=== PATIENT | female | born 1985 | race Caucasian/White ===

== ENCOUNTER 2016-04-09 09:28 | Emergency (ER) | payer BC, SELFPAY ==
[2016-04-09] MEDS ORDERED: IBUPROFEN 600 MG TAB As Ordered ONE (10:27)
[2016-04-09] MEDS ORDERED: ADACEL/BOOSTRIX VACCINE (DIPHTH/PERTUSS/ACELL/TETANUS)0.5ML SYR (90715) As Ordered ONE (10:27)
[2016-04-09] MEDS ORDERED: LIDOCAINE W/EPINEPHRINE 1% 20ML VIAL As Ordered ONE (10:27)
--- NOTE | 2016-04-09 11:01 | REP ---
Clinical: Trauma/injury . Technique: AP, lateral, bilateral oblique views of the left elbow. Findings: No acute fracture or dislocation is appreciated. Joint spaces and surrounding soft tissues appear normal. Lateral view demonstrates normal positioning to the anterior and posterior fat pads without evidence for effusion/hemarthrosis. No subcutaneous emphysema or foreign body identified. Impression: Normal left elbow radiographs. No acute fracture or dislocation. Signed by Van Martin MD 04/09/2016 10:53 A
--- NOTE | 2016-04-09 11:45 | EDDOCDS ---
Nurse's Notes [facility] Name: Ramonita Thomas Age: 30 yrs Sex: Female : 1985 Arrival Date: 04/09/2016 Time: 09:28 Bed I7 / 29 Private MD: David Pink Diagnosis: Laceration without foreign body of left elbow Presentation: 04/09 09:33 Presenting complaint: Patient states: left elbow injury and lac after slipping on ice. srm did not hit head. Adult Sepsis Screening: The patient does not have new or worsening altered mentation. Patient's respiratory rate is less than 22. Systolic blood pressure is greater than 100. Patient has a qSOFA score of 0- Negative Sepsis Screen. Suicide/Homicide risk assessment- the patient denies having any suicidal and/or homicidal ideations and does not present with any other emotional, behavioral or mental health complaints. 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 Transition of care: patient was not received from another setting of care. 09:33 Acuity: THAIS Level 4 [facility] 09:33 Method Of Arrival: Walkin/Carried/Asstd [facility] Triage Assessment: 09:34 General: Appears in no apparent distress, Behavior is appropriate for age, cooperative. srm Pain: Pain currently is 4 out of 10 on a pain scale. 09:34 Musculoskeletal: Reports left elbow injury. [facility] 09:35 HIV screening NA for this visit Offered previously. 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 control daily - PMHx: none; - PSHx: left ankle repair X2; eye surgery as a toddler; - Social history: Smoking status: Patient states was never smoker of tobacco. No barriers to communication noted, The patient speaks fluent Jordanian, Speaks appropriately for age. - Family history: Not pertinent. - : The pt / caregiver states he / she is not on anticoagulants. Home medication list is obtained from the patient. - Exposure Risk Screening:: None identified. Screenin:41 Screening information is obtained from the patient. Fall risk: No risks identified. jmk Assistance ADL's: requires no assistance with activities of daily living. Abuse/DV Screen: The patient / caregiver reports he/she is: not in a situation that causes fear, pain or injury. Nutritional screening: No deficits noted. Advance Directives: Currently, there is no health care proxy. There is no active DNR order. There is no living will. There is no Power of Robotic Machine Operator. Advance directive information has not previously been placed in an [facility] medical record. home support is adequate. Assessment: 09:40 Derm: 1/2 inch lac to elbow. cleansed with wound cutch cleaner. not actively bleeding at this srm time. Musculoskeletal: Circulation, motion, and sensation intact Capillary refill < 3 seconds in left fingers pt has full ROM of elbow. 10:50 General: Appears pain with palpation to posterior aspect of left elbow. ROM painful but jmk adequate.. pulse intact.approx 1/2" skin tear noted without active bleeding. denies other injury.. 11:41 General: Appears suturing completed and tolerated well. bacitracin and Band-Aid applied.k Vital Signs: 09:30 BP 155 / 82; Pulse 79; Resp 18; Temp 97.1(O); Pulse Ox 100% on R/A; Weight 94.8 kg (R); ct3 Height 5 ft. 33 in. (236.22 cm) (R); Pain 8/10; 11:36 BP 112 / 59; Pulse 73; Resp 18; Temp 98.6(TE); Pulse Ox 98% on R/A; Pain 3/10; nb2 09:30 Body Mass Index 16.99 (94.80 kg, 236.22 cm) ct3 Vitals: 09:30 Log In Time: April 09, 2016 at 09:27. ct3 ED Course: 09:29 Patient visited by Lorraine Thomason PCA. ct3 09:29 David Pink is Private Physician. ct3 09:29 Patient moved to Waiting ct3 09:31 Patient moved to Pre RCE ct3 09:33 Triage Initiated srm 09:35 Patient moved to Triage 3 srm 09:41 Patient visited by Anna Lemus RN. srm 10:13 Dilcia Wayne PA-C is PHCP. dt4 10:13 Kristine Paulson MD is Attending Physician. dt4 10:13 Patient visited by Dilcia Wayne PA-C. dt4 10:32 Patient moved to I7 / srm 10:33 Patient moved to Radiology srm 10:43 Patient name changed from Ramonita\\S\\Ghassan\\S\\Brittny\\S\\ to Ramonita\\S\\Taylor\\S\\William. EDMS 10:52 Patient visited by Tom Odom RN. jmk 10:53 [facility] Payment Agreement was scanned into [employer] and attached to record. lg 10:56 Patient moved to jmk 11:24 Elbow, Complete Returned. EDMS 11:37 Patient visited by Gillian Santos. nb2 11:41 The patient / caregiver is instructed regarding the plan of care and ED course. jmk 11:41 No IV's were initiated during this patient's visit. No procedures done that require k assistance. Administered Medications: 10:31 Drug: Tetanus- Diptheria-Acellular Pertussis 0.5 ml [diphth,pertussis(acel),tetanus 2.5 srm Lf unit-8 mcg-5 Lf/0.5mL IM syringe (0.5 mL)] {Pilling Machine Operator: [employer]. Exp: 05/13/2018. Lot #: [id number]. } Route: IM; Site: left deltoid; 10:31 Drug: Ibuprofen 600 mg [ibuprofen 600 mg tablet (1 tabs)] Route: PO; [facility] Order Results: Radiology Order: Elbow, Complete Test: Elbow, Complete REASON FOR EXAMINATION: left elbow injury; Clinical: Trauma/injury .; ; Technique: AP, lateral, bilateral oblique views of the left elbow.; ; Findings:; No acute fracture or dislocation is appreciated. Joint spaces and surrounding; soft tissues appear normal. Lateral view demonstrates normal positioning to the; anterior and posterior fat pads without evidence for effusion/hemarthrosis. No; subcutaneous emphysema or foreign body identified.; ; Impression:; Normal left elbow radiographs. No acute fracture or dislocation.; ; ; Signed by; Van Martin MD 04/09/2016 10:53 A; Outcome: 11:32 Discharge ordered by Provider. dt4 11:41 Discharge Assessment: Patient awake, alert and oriented x 3. No cognitive and/or jmk functional deficits noted. Patient verbalized understanding of disposition instructions. patient administered narcotics - no. The following High Risk Discharge criteria are identified: None. Discharged to home ambulatory. Condition: good. Discharge instructions given to patient, Instructed on discharge instructions, follow up and referral plans. medication usage, Demonstrated understanding of instructions, medications, Pt was receptive of discharge instructions/ teaching. No special radiology studies were completed. Property :Personal belongings accompany Pt. 11:44 Patient left the ED. dustin Signatures: Dispatcher [employer] EDMS Tom Odom RN RN jmk Michelson, Staci, RN RN srm Ganter, LoriLee, Reg Reg lg Paddy, Lorraine, MEDICAL TECHNOLOGIST HEMATOLOGY MEDICAL TECHNOLOGIST HEMATOLOGY ct3 Dilcia Wayne PA-C PA-C dt4 Gillian Santos2 MTDD
--- NOTE | 2016-04-09 11:45 | EDDOCDS ---
Physician Documentation [facility] Name: Ramonita Thomas Age: 30 yrs Sex: Female : 1985 Arrival Date: 04/09/2016 Time: 09:28 Bed I7 / 29 Private MD: David Pink Disposition: 04/09/16 11:32 Discharged to Home/Self Care. Impression: Laceration without foreign body of left elbow. - Condition is Stable. - Discharge Instructions: Laceration Care, Adult. - Medication Reconciliation, Local Pharmacy Hours form. - Follow up: Emergency Department; When: 10-12 DAYS ; Reason: Wound/Symptom Recheck, Staple/Suture removal. - Problem is new. - Symptoms have improved. - Notes: PLEASE RETURN TO THE ER, URGENT CARE OR YOUR PRIMARY CARE PROVIDER'S OFFICE IN 10-12 DAYS TO HAVE THE SUTURES REMOVED. IF YOU NOTICE ANY REDNESS, SWELLING, INCREASED PAIN, DRAINGE OR DISCHARGE FROM THIS AREA, PLEASE RETURN TO THE ER AT THAT TIME, THESE ARE ALL SIGNS OF INFECTION. Historical: - Allergies: Vicodin ("felt crazy"); - Home Meds: 1. control daily - PMHx: none; - PSHx: left ankle repair X2; eye surgery as a toddler; - Social history: Smoking status: Patient states was never smoker of tobacco. No barriers to communication noted, The patient speaks fluent Belarusian, Speaks appropriately for age. - Family history: Not pertinent. - : The pt / caregiver states he / she is not on anticoagulants. Home medication list is obtained from the patient. - Exposure Risk Screening:: None identified. 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 33 in. (236.22 cm) (R); Pain 8/10; 11:36 BP 112 / 59; Pulse 73; Resp 18; Temp 98.6(TE); Pulse Ox 98% on R/A; Pain 3/10; nb2 09:30 Body Mass Index 16.99 (94.80 kg, 236.22 cm) ct3 MDM: 10:23 Elbow, Complete Ordered. EDMS 10:24 Tetanus- Diptheria-Acellular Pertussis 0.5 ml IM once; Routine booster 10-64yrs, >64 dt4 with child contact [place] [employer] ordered. 10:24 Lidocaine 10 mg/mL (1 %) 10 ml Infiltration once; WITH EPI PLEASE, THANK YOU. ordered. dt4 10:24 Ibuprofen 600 mg PO once ordered. dt4 10:34 Financial registration complete. lg 10:53 [facility] Payment Agreement was scanned into [employer] and attached to record. lg Administered Medications: 10:31 Drug: Tetanus- Diptheria-Acellular Pertussis 0.5 ml [diphth,pertussis(acel),tetanus 2.5 srm Lf unit-8 mcg-5 Lf/0.5mL IM syringe (0.5 mL)] {Groundskeeper Supervisor: [employer]. Exp: 05/13/2018. Lot #: [id number]. } Route: IM; Site: left deltoid; 10:31 Drug: Ibuprofen 600 mg [ibuprofen 600 mg tablet (1 tabs)] Route: PO; srm Signatures: Dispatcher [employer]Ho EDMS Tom Odom RN RN jmk Michelson, Staci, RN RN srm Lela Pires, Dilcia Yepez lg, PA-C PA-C dt4 The chart was reviewed and I authenticate all verbal orders and agree with the evaluation and treatment provided.Attachments: 10:53 [facility] Payment Agreement lg MTDD
--- NOTE | 2016-04-11 12:45 | EDDOCDS ---
Physician Documentation [facility] Name: Ramonita Thomas Age: 30 yrs Sex: Female : 1985 Arrival Date: 04/09/2016 Time: 09:28 Bed I7 / 29 Private MD: David Pink Disposition: 04/09/16 11:32 Discharged to Home/Self Care. Impression: Laceration without foreign body of left elbow. - Condition is Stable. - Discharge Instructions: Laceration Care, Adult. - Medication Reconciliation, Local Pharmacy Hours form. - Follow up: Emergency Department; When: 10-12 DAYS ; Reason: Wound/Symptom Recheck, Staple/Suture removal. - Problem is new. - Symptoms have improved. - Notes: PLEASE RETURN TO THE ER, URGENT CARE OR YOUR PRIMARY CARE PROVIDER'S OFFICE IN 10-12 DAYS TO HAVE THE SUTURES REMOVED. IF YOU NOTICE ANY REDNESS, SWELLING, INCREASED PAIN, DRAINGE OR DISCHARGE FROM THIS AREA, PLEASE RETURN TO THE ER AT THAT TIME, THESE ARE ALL SIGNS OF INFECTION. Historical: - Allergies: Vicodin ("felt crazy"); - Home Meds: 1. control daily - PMHx: none; - PSHx: left ankle repair X2; eye surgery as a toddler; - Social history: Smoking status: Patient states was never smoker of tobacco. No barriers to communication noted, The patient speaks fluent Chinese, Speaks appropriately for age. - Family history: Not pertinent. - : The pt / caregiver states he / she is not on anticoagulants. Home medication list is obtained from the patient. - Exposure Risk Screening:: None identified. ACCESS CLINICIAN: 04/09 09:34 LMP 04/09/2016 srm Vital Signs: 09:30 BP 155 / 82; Pulse 79; Resp 18; Temp 97.1(O); Pulse Ox 100% on R/A; Weight 94.8 kg / ct3 209 lbs (R); Height 5 ft. 33 in. (236.22 cm) (R); Pain 8/10; 11:36 BP 112 / 59; Pulse 73; Resp 18; Temp 98.6(TE); Pulse Ox 98% on R/A; Pain 3/10; nb2 09:30 Body Mass Index 16.99 (94.80 kg, 236.22 cm) ct3 MDM: 10:23 Elbow, Complete Ordered. EDMS 10:24 Tetanus- Diptheria-Acellular Pertussis 0.5 ml IM once; Routine booster 10-64yrs, >64 dt4 with child contact [place] [employer] ordered. 10:24 Lidocaine 10 mg/mL (1 %) 10 ml Infiltration once; WITH EPI PLEASE, THANK YOU. ordered. dt4 10:24 Ibuprofen 600 mg PO once ordered. dt4 10:34 Financial registration complete. lg 10:53 [facility] Payment Agreement was scanned into [employer] and attached to record. lg 14:13 T-Sheet-- Draft Copy was scanned into [employer] and attached to record. gb Administered Medications: 10:31 Drug: Tetanus- Diptheria-Acellular Pertussis 0.5 ml [diphth,pertussis(acel),tetanus 2.5 srm Lf unit-8 mcg-5 Lf/0.5mL IM syringe (0.5 mL)] {Soaker Hides: [employer]. Exp: 05/13/2018. Lot #: [id number]. } Route: IM; Site: left deltoid; 10:31 Drug: Ibuprofen 600 mg [ibuprofen 600 mg tablet (1 tabs)] Route: PO; srm Signatures: Dispatcher MedHost EDMS Tom Odom,RN Anna Cheung RN RN srm Judith Underwood, Reg Reg gb Lela Pires, Reg Reg lg Dilcia Wayne, NED PAChris dt4 The chart was reviewed and I authenticate all verbal orders and agree with the evaluation and treatment provided.Attachments: 10:53 [facility] Payment Agreement lg 14:13 T-Sheet-- Draft Copy gb Chart Complete MTDD
--- NOTE | 2016-04-11 12:45 | EDDOCDS ---
Physician Documentation [facility] Name: Ramonita Thomas Age: 30 yrs Sex: Female : 1985 Arrival Date: 04/09/2016 Time: 09:28 Bed I7 / 29 Private MD: David Pink Disposition: 04/09/16 11:32 Discharged to Home/Self Care. Impression: Laceration without foreign body of left elbow. - Condition is Stable. - Discharge Instructions: Laceration Care, Adult. - Medication Reconciliation, Local Pharmacy Hours form. - Follow up: Emergency Department; When: 10-12 DAYS ; Reason: Wound/Symptom Recheck, Staple/Suture removal. - Problem is new. - Symptoms have improved. - Notes: PLEASE RETURN TO THE ER, URGENT CARE OR YOUR PRIMARY CARE PROVIDER'S OFFICE IN 10-12 DAYS TO HAVE THE SUTURES REMOVED. IF YOU NOTICE ANY REDNESS, SWELLING, INCREASED PAIN, DRAINGE OR DISCHARGE FROM THIS AREA, PLEASE RETURN TO THE ER AT THAT TIME, THESE ARE ALL SIGNS OF INFECTION. Historical: - Allergies: Vicodin ("felt crazy"); - Home Meds: 1. control daily - PMHx: none; - PSHx: left ankle repair X2; eye surgery as a toddler; - Social history: Smoking status: Patient states was never smoker of tobacco. No barriers to communication noted, The patient speaks fluent Khmer, Speaks appropriately for age. - Family history: Not pertinent. - : The pt / caregiver states he / she is not on anticoagulants. Home medication list is obtained from the patient. - Exposure Risk Screening:: None identified. 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 33 in. (236.22 cm) (R); Pain 8/10; 11:36 BP 112 / 59; Pulse 73; Resp 18; Temp 98.6(TE); Pulse Ox 98% on R/A; Pain 3/10; nb2 09:30 Body Mass Index 16.99 (94.80 kg, 236.22 cm) ct3 MDM: 10:23 Elbow, Complete Ordered. EDMS 10:24 Tetanus- Diptheria-Acellular Pertussis 0.5 ml IM once; Routine booster 10-64yrs, >64 dt4 with child contact [place] [employer] ordered. 10:24 Lidocaine 10 mg/mL (1 %) 10 ml Infiltration once; WITH EPI PLEASE, THANK YOU. ordered. dt4 10:24 Ibuprofen 600 mg PO once ordered. dt4 10:34 Financial registration complete. lg 10:53 [facility] Payment Agreement was scanned into [employer] and attached to record. lg 14:13 T-Sheet-- Draft Copy was scanned into [employer] and attached to record. gb Administered Medications: 10:31 Drug: Tetanus- Diptheria-Acellular Pertussis 0.5 ml [diphth,pertussis(acel),tetanus 2.5 srm Lf unit-8 mcg-5 Lf/0.5mL IM syringe (0.5 mL)] {Pharmaceutical Compounding Supervisor: [employer]. Exp: 05/13/2018. Lot #: [id number]. } Route: IM; Site: left deltoid; 10:31 Drug: Ibuprofen 600 mg [ibuprofen 600 mg tablet (1 tabs)] Route: PO; srm Signatures: Dispatcher MedHost EDMS Tom Odom,RN Anna Cheung RN RN srm Judith Underwood, Reg Reg gb Lela Pires, Reg Reg lg Dilcia Wayne, NED PAChris dt4 The chart was reviewed and I authenticate all verbal orders and agree with the evaluation and treatment provided.Attachments: 10:53 [facility] Payment Agreement lg 14:13 T-Sheet-- Draft Copy gb Chart Complete MTDD
--- NOTE | 2016-04-11 12:45 | EDDOCDS ---
Nurse's Notes [facility] Name: Ramonita Thomas Age: 30 yrs Sex: Female : 1985 Arrival Date: 04/09/2016 Time: 09:28 Bed I7 / 29 Private MD: David Pink Diagnosis: Laceration without foreign body of left elbow Presentation: 04/09 09:33 Presenting complaint: Patient states: left elbow injury and lac after slipping on ice. srm did not hit head. Adult Sepsis Screening: The patient does not have new or worsening altered mentation. Patient's respiratory rate is less than 22. Systolic blood pressure is greater than 100. Patient has a qSOFA score of 0- Negative Sepsis Screen. Suicide/Homicide risk assessment- the patient denies having any suicidal and/or homicidal ideations and does not present with any other emotional, behavioral or mental health complaints. 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 Transition of care: patient was not received from another setting of care. 09:33 Acuity: THAIS Level 4 [facility] 09:33 Method Of Arrival: Walkin/Carried/Asstd [facility] Triage Assessment: 09:34 General: Appears in no apparent distress, Behavior is appropriate for age, cooperative. srm Pain: Pain currently is 4 out of 10 on a pain scale. 09:34 Musculoskeletal: Reports left elbow injury. [facility] 09:35 HIV screening NA for this visit Offered previously. 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 control daily - PMHx: none; - PSHx: left ankle repair X2; eye surgery as a toddler; - Social history: Smoking status: Patient states was never smoker of tobacco. No barriers to communication noted, The patient speaks fluent Zambian, Speaks appropriately for age. - Family history: Not pertinent. - : The pt / caregiver states he / she is not on anticoagulants. Home medication list is obtained from the patient. - Exposure Risk Screening:: None identified. Screenin:41 Screening information is obtained from the patient. Fall risk: No risks identified. jmk Assistance ADL's: requires no assistance with activities of daily living. Abuse/DV Screen: The patient / caregiver reports he/she is: not in a situation that causes fear, pain or injury. Nutritional screening: No deficits noted. Advance Directives: Currently, there is no health care proxy. There is no active DNR order. There is no living will. There is no Power of Information Technology Project Manager. Advance directive information has not previously been placed in an [facility] medical record. home support is adequate. Assessment: 09:40 Derm: 1/2 inch lac to elbow. cleansed with wound carbon cleaner. not actively bleeding at this srm time. Musculoskeletal: Circulation, motion, and sensation intact Capillary refill < 3 seconds in left fingers pt has full ROM of elbow. 10:50 General: Appears pain with palpation to posterior aspect of left elbow. ROM painful but jmk adequate.. pulse intact.approx 1/2" skin tear noted without active bleeding. denies other injury.. 11:41 General: Appears suturing completed and tolerated well. bacitracin and Band-Aid applied.k Vital Signs: 09:30 BP 155 / 82; Pulse 79; Resp 18; Temp 97.1(O); Pulse Ox 100% on R/A; Weight 94.8 kg (R); ct3 Height 5 ft. 33 in. (236.22 cm) (R); Pain 8/10; 11:36 BP 112 / 59; Pulse 73; Resp 18; Temp 98.6(TE); Pulse Ox 98% on R/A; Pain 3/10; nb2 09:30 Body Mass Index 16.99 (94.80 kg, 236.22 cm) ct3 Vitals: 09:30 Log In Time: April 09, 2016 at 09:27. ct3 ED Course: 09:29 Patient visited by Lorraine Thomason PCA. ct3 09:29 David Pink is Private Physician. ct3 09:29 Patient moved to Waiting ct3 09:31 Patient moved to Pre RCE ct3 09:33 Triage Initiated srm 09:35 Patient moved to Triage 3 srm 09:41 Patient visited by Anna Lemus RN. srm 10:13 Dilcia Wayne PA-C is PHCP. dt4 10:13 Kristine Paulson MD is Attending Physician. dt4 10:13 Patient visited by Dilcia Wayne PA-C. dt4 10:32 Patient moved to I7 / srm 10:33 Patient moved to Radiology srm 10:43 Patient name changed from Ramonita\\S\\M\\S\\Brittny\\S\\ to Ramonita\\S\\Taylor\\S\\William. EDMS 10:52 Patient visited by Tom Odom RN. jmk 10:53 [facility] Payment Agreement was scanned into [employer] and attached to record. lg 10:56 Patient moved to I jmk 11:24 Elbow, Complete Returned. EDMS 11:37 Patient visited by Gillian Santos. nb2 11:41 The patient / caregiver is instructed regarding the plan of care and ED course. jmk 11:41 No IV's were initiated during this patient's visit. No procedures done that require k assistance. 14:13 T-Sheet-- Draft Copy was scanned into [employer] and attached to record. gb Administered Medications: 10:31 Drug: Tetanus- Diptheria-Acellular Pertussis 0.5 ml [diphth,pertussis(acel),tetanus 2.5 srm Lf unit-8 mcg-5 Lf/0.5mL IM syringe (0.5 mL)] {Steamboat Pilot: [employer]. Exp: 05/13/2018. Lot #: [id number]. } Route: IM; Site: left deltoid; 10:31 Drug: Ibuprofen 600 mg [ibuprofen 600 mg tablet (1 tabs)] Route: PO; [facility] Order Results: Radiology Order: Elbow, Complete Test: Elbow, Complete REASON FOR EXAMINATION: left elbow injury; Clinical: Trauma/injury .; ; Technique: AP, lateral, bilateral oblique views of the left elbow.; ; Findings:; No acute fracture or dislocation is appreciated. Joint spaces and surrounding; soft tissues appear normal. Lateral view demonstrates normal positioning to the; anterior and posterior fat pads without evidence for effusion/hemarthrosis. No; subcutaneous emphysema or foreign body identified.; ; Impression:; Normal left elbow radiographs. No acute fracture or dislocation.; ; ; Signed by; Van Martin MD 04/09/2016 10:53 A; Outcome: 11:32 Discharge ordered by Provider. dt4 11:41 Discharge Assessment: Patient awake, alert and oriented x 3. No cognitive and/or k functional deficits noted. Patient verbalized understanding of disposition instructions. patient administered narcotics - no. The following High Risk Discharge criteria are identified: None. Discharged to home ambulatory. Condition: good. Discharge instructions given to patient, Instructed on discharge instructions, follow up and referral plans. medication usage, Demonstrated understanding of instructions, medications, Pt was receptive of discharge instructions/ teaching. No special radiology studies were completed. Property :Personal belongings accompany Pt. 11:44 Patient left the ED. dustin Signatures: Dispatcher MedHost EDMS Tom Odom RN RN jmk Michelson, Staci, RN RN [facility] Yasmine, Judith, Reg Reg gb Ganter, LoriLee, Reg Reg lg Thomason, Lorraine, LINE ANALYST LINE ANALYST ct3 Dilcia Wayne, NED PAChris dt4 Gillian Santos2 Chart Complete MTDKenny
== END 2016-04-09 11:44 | disposition home or self-care (01) ==
LOC: M ED 09:28
DX: S51.012A Laceration without foreign body of left elbow, initial encounter (principal); W00.0XXA Fall on same level due to ice and snow, initial encounter; Y92.019 Unspecified place in single-family (private) house as the place of occurrence of the external cause; Y93.01 Activity, walking, marching and hiking; Y99.8 Other external cause status; Z79.3 Long term (current) use of hormonal contraceptives; Z88.8 Allergy status to other drugs, medicaments and biological substances

== ENCOUNTER → 2016-12-30 | Outpatient (REF) | payer OTHER | LOC: M SFHCWAGY 15:40 | PROVIDERS: ATTEND Nurse Practitioner Women's Health | DX: Z12.4 Encounter for screening for malignant neoplasm of cervix (principal) ==

== ENCOUNTER 2017-05-28 14:57 | Emergency (ER) | payer OTHER ==
[2017-05-28 15:39] LABS: CONTROL LINE UCG INT CTR LINE PRESENT; KETONE, URINE AUTO RFX NEGATIVE (NEGATIVE); LEUKOCYTE ESTERASE UR AUTO RFX NEGATIVE (NEGATIVE); NITRITE, URINE AUTO RFX NEGATIVE (NEGATIVE); RBC, URINE AUTO RFX 0 /HPF (0-3); SPECIFIC GRAVITY UR AUTO RFX 1.003 (1.002-1.035); SQUAM EPITHELIAL CELL UR AURFX 0 /HPF (0-6); URINE PREG TEST NEGATIVE (NEGATIVE); WBC, URINE AUTO RFX 0 /HPF (0-3)
[2017-05-28] MEDS: KETOROLAC 30 MG/ML VIAL (J1885) IV (17:14)
[2017-05-28] MEDS: ONDANSETRON 4MG/2ML VIAL (J2405) IV (17:14)
[2017-05-28] MEDS: NS 1,000 ML IV (17:41)
[2017-05-28 17:46] LABS: BASO % 0.5 % (0.0-1.0); EOS # 0.1 10^3/uL (0.0-0.50); EOS % 1.4 % (0.0-3.0); HEMOGLOBIN 13.6 g/dl (12.0-16.0); IMMATURE GRANULOCYTE % 0.3 % (0-3.0); LYMPH # 1.9 10^3/uL (1.5-4.5); MEAN CORPUSCULAR HEMOGLOBIN 31.9 pg (27.0-33.0); MEAN CORPUSCULAR HGB CONC 34.9 g/dl (32.0-36.5); MEAN CORPUSCULAR VOLUME 91.3 fl (80.0-96.0); MONO # 0.4 10^3/uL (0.0-0.8); MONO % 6.4 % (0.0-5.0); NEUTROPHILS # 3.8 10^3/uL (1.8-7.7); NEUTROPHILS % 61.4 % (36.0-66.0); PLATELET COUNT, AUTOMATED 246 10^3/uL (150-450); RED BLOOD COUNT 4.27 10^6/uL (4.00-5.40); WHITE BLOOD COUNT 6.3 10^3/uL (4.0-10.0)
[2017-05-28 19:26] LABS: ANION GAP 8 MEQ/L (8-16); BLOOD UREA NITROGEN 10 MG/DL (7-18); C REACTIVE PROTEIN QUANTITATIV 0.31 MG/DL (0.00-0.30); CALCIUM LEVEL 9.1 MG/DL (8.5-10.1); CARBON DIOXIDE LEVEL 26 MEQ/L (21-32); CHLORIDE LEVEL 107 MEQ/L (98-107); CREATININE FOR GFR 0.72 MG/DL (0.55-1.30); GLOMERULAR FILTRATION RATE > 60.0 (>60); GLUCOSE, FASTING 84 MG/DL (70-100); POTASSIUM SERUM 3.7 MEQ/L (3.5-5.1); SODIUM LEVEL 141 MEQ/L (136-145)
[2017-05-28] MEDS: NORCO 5/325MG TABLET (BULK FOR ED) PO (19:52)
== END 2017-05-28 19:59 | disposition home or self-care (01) ==
LOC: M ED 14:57
DX: N83.202 Unspecified ovarian cyst, left side (principal); Z97.5 Presence of (intrauterine) contraceptive device; E66.9 Obesity, unspecified; Z88.0 Allergy status to penicillin
CPT/HCPCS: J2405

== ENCOUNTER → 2018-09-05 | Outpatient (REF) | payer BC ==
[~2018-09-05] MED LIST: HYDR-3715 PO
[2018-09-05 13:24] LABS: MONO SCRN NEGATIVE (NEGATIVE)
== END ==
LOC: M LAB REF 12:12
PROVIDERS: ATTEND Physician Assistant Medical
DX: J02.9 Acute pharyngitis, unspecified (principal)

== ENCOUNTER → 2019-08-10 | Outpatient (REF) | payer BC, OTHER | LOC: M SFHCWAGY 16:58 | PROVIDERS: ATTEND Nurse Practitioner Women's Health | DX: Z01.419 Encounter for gynecological examination (general) (routine) without abnormal findings (principal); Z12.4 Encounter for screening for malignant neoplasm of cervix ==

== ENCOUNTER → 2021-04-08 | Outpatient (REF) | payer BC | LOC: M SFHCWAGY 12:49 | PROVIDERS: ATTEND Nurse Practitioner Women's Health | DX: Z12.4 Encounter for screening for malignant neoplasm of cervix (principal); Z01.419 Encounter for gynecological examination (general) (routine) without abnormal findings; Z77.9 Other contact with and (suspected) exposures hazardous to health ==

== ENCOUNTER → 2022-09-16 | Outpatient (CLI) | payer BC ==
[2022-09-16 14:15] LABS: FREE T4 0.91 NG/DL (0.89-1.76)
[2022-09-16 14:17] LABS: THYROID STIMULATING HORMONE 1.432 uIU/ML (0.55-4.78)
[2022-09-16 15:10] LABS: HEMOGLOBIN A1c 4.8 % (4.0-6.0)
[2022-09-16 15:47] LABS: GC DNA AMPLIFICATION NEGATIVE (NEGATIVE)
[2022-09-16 15:51] LABS: GC DNA AMPLIFICATION NEGATIVE (NEGATIVE)
[2022-09-17 07:07] LABS: HSV TYPE I IgG SPECIFIC <0.91 index (0.00-0.90); HSV TYPE II IgG SPECIFIC <0.91 index (0.00-0.90)
== END ==
LOC: M PLALAB 11:12
PROVIDERS: ATTEND Advanced Practice Midwife
DX: Z11.3 Encounter for screening for infections with a predominantly sexual mode of transmission (principal)

== ENCOUNTER → 2023-04-13 | Outpatient (CLI) | payer OTHER | LOC: M WHC 08:15 | PROVIDERS: ATTEND Obstetrics & Gynecology | DX: N93.9 Abnormal uterine and vaginal bleeding, unspecified (principal) ==

== ENCOUNTER 2023-08-18 10:12 | Day surgery (SDC) | payer OTHER ==
[~2023-08-18] VITALS: Ht 160 cm; Wt 111.1 kg
[~2023-08-18 10:12] MED LIST changes: +ETON1VAG7 VG
[2023-08-18] MEDS ORDERED: LR 1,000 ML IV SCH ×3 (10:45→13:30)
[2023-08-18 10:47] LABS: HEMATOCRIT 39.1 % (36.0-47.0); HEMOGLOBIN 13.4 g/dl (12.0-15.5); MEAN CORPUSCULAR HEMOGLOBIN 31.4 pg (27.0-33.0); MEAN CORPUSCULAR HGB CONC 34.3 g/dl (32.0-36.5); MEAN CORPUSCULAR VOLUME 91.6 fl (80.0-96.0); PLATELET COUNT, AUTOMATED 259 10^3/uL (150-450); RED BLOOD COUNT 4.27 10^6/uL (4.00-5.40); WHITE BLOOD COUNT 5.5 10^3/uL (4.0-10.0)
[2023-08-18 11:09] LABS: HCG, SERUM QUALITATIVE NEGATIVE (NEGATIVE)
[2023-08-18] MEDS ORDERED: SUGAMMADEX SODIUM 500 MG/5 ML VIAL (BRIDION) As Ordered ONE (11:10)
[2023-08-18] MEDS ORDERED: LIDOCAINE 2% 100MG/5ML SDV (FOR ANES.) As Ordered ONE (11:10)
[2023-08-18] MEDS ORDERED: KETOROLAC 60MG 2ML VIAL As Ordered ONE (11:10)
[2023-08-18] MEDS ORDERED: ROCURONIUM BROMIDE 50MG/5ML VIAL As Ordered ONE (11:10)
[2023-08-18] MEDS ORDERED: ONDANSETRON 4MG 2ML VIAL As Ordered ONE (11:10)
[2023-08-18] MEDS ORDERED: propofoL 200 MG/20 ML VIAL As Ordered ONE (11:10)
[2023-08-18] MEDS ORDERED: MIDAZOLAM INJ 2MG/2ML VIAL As Ordered ONE (11:10)
[2023-08-18] MEDS ORDERED: fentaNYL 100 MCG/2 ML INJECTION As Ordered ONE (11:11)
[2023-08-18] MEDS ORDERED: ACETAMINOPHEN 1000MG 100ML IV BAG As Ordered ONE (12:36)
[2023-08-18] MEDS ORDERED: dexmedeTOMIDine (4MCG/ML)200MCG/50ML BTL (PRECEDEX) As Ordered ONE (12:36)
[2023-08-18] MEDS ORDERED: GLYCOPYRROLATE INJ 0.2 MG/ML 2 ML VIAL As Ordered ONE (12:42)
[2023-08-18] MEDS: SILVER NITRATE APPLICATOR (1 = QTY 10) As Ordered ONE (12:53)
[2023-08-18] MEDS ORDERED: PERC5TAB12 PO (13:05)
[2023-08-18] MEDS ORDERED: diphenhydrAMINE 50MG/ML VIAL IV PRN (13:05)
[2023-08-18] MEDS ORDERED: oxyCODONE 5MG TAB PO PRN (13:05)
[2023-08-18] MEDS ORDERED: fentaNYL 100 MCG/2 ML INJECTION IV PRN (13:05)
[2023-08-18] MEDS ORDERED: MEPERIDINE 25 MG/ML 1ML VIAL IV PRN (13:05)
[2023-08-18] MEDS ORDERED: METOCLOPRAMIDE INJ 10MG/2ML VIAL IV PRN (13:05)
[2023-08-18] MEDS: HYDROMORPHONE HCL 0.5 MG/ 0.5 ML SYRINGE IV PRN (13:23)
[2023-08-18] MEDS: ONDANSETRON 4MG 2ML VIAL IV PRN (13:23)
[2023-08-18 14:42] VITALS: BP 150/72; TEMP 97.4; O2SAT 99
== END 2023-08-18 14:46 | disposition home or self-care (01) ==
LOC: M SDC 10:12
PROVIDERS: ATTEND Obstetrics & Gynecology
DX: Z30.2 Encounter for sterilization (principal); Z88.0 Allergy status to penicillin; Z79.3 Long term (current) use of hormonal contraceptives
CPT/HCPCS: 36415; 58661; 84703; 85027; 86850; 86900; 86901; 88302; 88305; J0131; J0665; J1100; J1170; J1885; J2250; J2405; J3010

== ENCOUNTER → 2024-01-25 | Outpatient (CLI) | payer OTHER ==
[~2024-01-25] MED LIST changes: +PERC5TAB12 PO
== END ==
LOC: M SLEEP HO 10:47
PROVIDERS: ATTEND Internal Medicine Critical Care Medicine
DX: G47.30 Sleep apnea, unspecified (principal)